=== PATIENT | female | born 2000 | race Caucasian/White ===

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

== ENCOUNTER → 2019-10-31 | Outpatient (CLI) | payer OTHER | LOC: M LABSMTC 12:52 | PROVIDERS: ATTEND Pediatrics | DX: Z03.818 Encounter for observation for suspected exposure to other biological agents ruled out (principal); Z11.59 Encounter for screening for other viral diseases ==

== ENCOUNTER → 2021-02-26 | Outpatient (CLI) | payer OTHER ==
[2021-02-26 12:48] LABS: HEMATOCRIT 42.1 % (36.0-47.0); HEMOGLOBIN 13.7 g/dl (12.0-15.5); MEAN CORPUSCULAR HEMOGLOBIN 32.1 pg (27.0-33.0); MEAN CORPUSCULAR HGB CONC 32.5 g/dl (32.0-36.5); MEAN CORPUSCULAR VOLUME 98.6 fl (80.0-96.0); PLATELET COUNT, AUTOMATED 295 10^3/uL (150-450); RED BLOOD COUNT 4.27 10^6/uL (4.00-5.40); WHITE BLOOD COUNT 11.3 10^3/uL (4.0-10.0)
[2021-02-26 14:15] LABS: GC DNA AMPLIFICATION NEGATIVE (NEGATIVE)
== END ==
LOC: M WUC 08:36
PROVIDERS: ATTEND Obstetrics & Gynecology
DX: Z34.01 Encounter for supervision of normal first pregnancy, first trimester (principal); Z3A.00 Weeks of gestation of pregnancy not specified

== ENCOUNTER → 2021-03-05 | Outpatient (CLI) | payer OTHER ==
[2021-03-05 11:45] LABS: HEPATITIS C VIRUS ABY INDEX < 0.0 INDEX (<0.8); HIV 1&2 SCREEN CENTAUR NEGATIVE (NEGATIVE)
== END ==
LOC: M PLALAB 09:15
PROVIDERS: ATTEND Obstetrics & Gynecology
DX: Z34.01 Encounter for supervision of normal first pregnancy, first trimester (principal); Z36.89 Encounter for other specified antenatal screening

== ENCOUNTER → 2021-04-09 | Outpatient (CLI) | payer OTHER ==
--- NOTE | 2021-04-09 09:06 | REP ---
INDICATION: ANATOMY COMPARISON: None. TECHNIQUE: Transabdominal obstetrical ultrasound with color Doppler evaluation. FINDINGS: Examination demonstrates a single live intrauterine in cephalic presentation. motion is identified by technologist. Placenta is noted posterior and grade 0 without evidence for placenta previa or abruption. Amniotic fluid volume is normal. Cervix measures 4.9 cm in length and appears closed.. Selected gestational age: 20 weeks 0 days with CARMEN 08/27/2021. Gestational age by current measurements 20 weeks 1 day with CARMEN 08/26/2021. FHR equals 142 beats per minute. Estimated weight 319 grams (39thpercentile). Anatomical assessment demonstrates normal structures including cranium, choroid plexus, cavum, cerebellum/posterior fossa, facial features, lungs, diaphragm, stomach, cord insertion/three-vessel cord, kidneys/bladder, spine, and extremities. IMPRESSION: Single live intrauterine in cephalic presentation demonstrating appropriate estimated weight. Limited evaluation of the heart/ventricular outflow tracts. Remainder of the anatomical assessment is complete and normal. <Electronically signed by Rajesh Whalen > 04/09/21 0940
== END ==
LOC: M WHC 07:54
PROVIDERS: ATTEND Advanced Practice Midwife
DX: Z34.02 Encounter for supervision of normal first pregnancy, second trimester (principal); Z36.89 Encounter for other specified antenatal screening; Z3A.20 20 weeks gestation of pregnancy

== ENCOUNTER → 2021-05-07 | Outpatient (CLI) | payer OTHER | LOC: M WHC 08:03 | PROVIDERS: ATTEND Advanced Practice Midwife | DX: O26.892 Other specified pregnancy related conditions, second trimester (principal); Z3A.24 24 weeks gestation of pregnancy ==

== ENCOUNTER → 2021-05-27 | Outpatient (CLI) | payer OTHER ==
[2021-05-27 10:31] LABS: HEMATOCRIT 38.7 % (36.0-47.0); HEMOGLOBIN 12.8 g/dl (12.0-15.5); MEAN CORPUSCULAR HEMOGLOBIN 32.3 pg (27.0-33.0); MEAN CORPUSCULAR HGB CONC 33.1 g/dl (32.0-36.5); MEAN CORPUSCULAR VOLUME 97.7 fl (80.0-96.0); PLATELET COUNT, AUTOMATED 257 10^3/uL (150-450); RED BLOOD COUNT 3.96 10^6/uL (4.00-5.40); WHITE BLOOD COUNT 10.3 10^3/uL (4.0-10.0)
[2021-05-27 12:23] LABS: GC DNA AMPLIFICATION NEGATIVE (NEGATIVE)
== END ==
LOC: M PLALAB 08:10
PROVIDERS: ATTEND Obstetrics & Gynecology
DX: Z36.89 Encounter for other specified antenatal screening (principal); Z3A.24 24 weeks gestation of pregnancy

== ENCOUNTER → 2021-08-05 | Outpatient (REF) | payer OTHER | LOC: M PLALAB 08:09 | PROVIDERS: ATTEND Advanced Practice Midwife | DX: Z34.03 Encounter for supervision of normal first pregnancy, third trimester (principal); Z36.85 Encounter for antenatal screening for Streptococcus B ==

== ENCOUNTER → 2021-08-10 | Outpatient (CLI) | payer OTHER | LOC: M WHC 07:47 | PROVIDERS: ATTEND Advanced Practice Midwife | DX: O40.3XX0 Polyhydramnios, third trimester, not applicable or unspecified (principal); Z3A.35 35 weeks gestation of pregnancy ==

== ENCOUNTER → 2023-12-21 | Outpatient (REF) | payer OTHER, BC ==
[~2023-12-21] MED LIST: PRENTAB9 PO; REGL5TAB2 PO
== END ==
LOC: M PLALAB 12:02
PROVIDERS: ATTEND Obstetrics & Gynecology
DX: Z01.419 Encounter for gynecological examination (general) (routine) without abnormal findings (principal)

== ENCOUNTER → 2023-12-21 | Outpatient (CLI) | payer OTHER, BC ==
[2023-12-21 15:59] LABS: HEMATOCRIT 43.5 % (36.0-47.0); HEMOGLOBIN 14.3 g/dl (12.0-15.5); MEAN CORPUSCULAR HEMOGLOBIN 31.7 pg (27.0-33.0); MEAN CORPUSCULAR HGB CONC 32.9 g/dl (32.0-36.5); MEAN CORPUSCULAR VOLUME 96.5 fl (80.0-96.0); PLATELET COUNT, AUTOMATED 304 10^3/uL (150-450); RED BLOOD COUNT 4.51 10^6/uL (4.00-5.40); WHITE BLOOD COUNT 7.2 10^3/uL (4.0-10.0)
[2023-12-21 16:32] LABS: HCG, SERUM QUANTITATIVE < 2.6 MIU/ML (<4.2)
[2023-12-21 16:36] LABS: FREE T4 1.07 NG/DL (0.89-1.76); THYROID STIMULATING HORMONE 1.507 uIU/ML (0.55-4.78)
[2023-12-21 16:37] LABS: PROLACTIN 9.08 NG/ML
== END ==
LOC: M PLALAB 13:08
PROVIDERS: ATTEND Obstetrics & Gynecology
DX: Z01.419 Encounter for gynecological examination (general) (routine) without abnormal findings (principal); N93.9 Abnormal uterine and vaginal bleeding, unspecified; Z77.9 Other contact with and (suspected) exposures hazardous to health; R87.610 Atypical squamous cells of undetermined significance on cytologic smear of cervix (ASC-US)
CPT/HCPCS: 36415; 84146; 84439; 84443; 84702; 85027; 87624; G0123